=== PATIENT | male | born 1955 | race Caucasian/White ===

== ENCOUNTER 2022-07-16 08:54 | Inpatient (IN) | payer MEDICARE, OTHER, SELFPAY ==
[2022-07-16] VITALS (12 sets, daily range): BP systolic 99–145; BP diastolic 59–80; PULSE 77–109; RESP 16–28; TEMP 36.9–37.3; O2SAT 91–98; BMI 20.2
--- NOTE | 2022-07-16 09:05 | DI.RAD.S_ITS ---
PROCEDURE: XR CHEST 1V INDICATIONS: Short of breath TECHNIQUE: One view of the chest was acquired. COMPARISON: [facility], CT, CT ANGIO CHEST PE PROTOCOL, 07/16/2022, 9:36. [facility], CR, CHEST 2 VIEW, 09/20/2008, 12:08. FINDINGS: Surgical changes and devices: Epigastric clips are seen. Lungs and pleura: Poorly defined infiltrate can be seen involving the right lower lung. Underlying emphysematous changes are seen, with baseline parenchymal coarsening. There is mild blunting of the right costophrenic angle. No pneumothorax is seen. Mediastinum: The cardiac contours are within normal limits. The aorta demonstrates calcification and tortuosity. Bones and chest wall: No suspicious bony lesions. Age-appropriate bony degenerative changes are seen. Overlying soft tissues appear unremarkable. IMPRESSION: Right-sided pleural effusion and infiltrate. Postoperative and degenerative changes are seen. Dictated by: Alberto River M.D. on 07/16/2022 at 9:02 Approved by: Alberto River M.D. on 07/16/2022 at 9:03
--- NOTE | 2022-07-16 09:06 | DI.CT.S_ITS ---
PROCEDURE: CT ANGIO CHEST PE PROTOCOL INDICATIONS: hypoxia TECHNIQUE: After the administration of intravenous contrast, 2 mm thick sections acquired from the pulmonary apices to the posterior costophrenic angles. 3-dimensional maximum intensity projection (MIP) coronal and sagittal reformats were then acquired through the thorax. For radiation dose reduction, the following was used: automated exposure control, adjustment of mA and/or kV according to patient size. COMPARISON: None. FINDINGS: Image quality: Excellent. Pulmonary arteries: Pulmonary arteries are normal in size, and demonstrate no intraluminal filling defects to suggest central pulmonary embolism. Lungs and pleura: Calcified pleural plaques are noted in posterior medial right lung field suggestive of prior asbestos exposure. Moderate to severe centrilobular emphysema is seen. Ill-defined airspace opacities are noted in posterior and medial aspect of right lower lobe with associated bronchiectasis. Masslike consolidation in posterior lateral left lung base measures 1.2 x 1.3 cm in size is seen series 5, image 294. Calcified granuloma is also noted at left lung base measures 4 mm in size series 5, image 300. Small infiltrate/atelectasis in anterolateral aspect of right middle lobe is seen. Central and peripheral airway is patent. No pleural effusion or pneumothorax. Mediastinum: Heart size is normal, without pericardial effusion. Borderline enlarged mediastinal and hilar lymph nodes are seen measures up to 1 cm in size in right hilar region and precarinal space. Thoracic aorta is normal in caliber and enhancement. Surgical clips are noted in distal esophagus and gastroesophageal junction suggest clinical correlation. Esophagus is normal in caliber, without hiatal hernia. Bones and chest wall: No suspicious bony lesions. No acute vertebral body compression fracture. Postfusion changes are noted in lower cervical spine.. Thyroid gland is within normal limits. No axillary or supraclavicular adenopathy. Abdomen: Visualized upper abdominal solid organs appear normal in the early arterial phase of enhancement. IMPRESSION: 1. No evidence of pulmonary emboli. No thoracic aortic aneurysm or gross dissection. 2. Advanced centrilobular emphysema. Calcified pleural plaques along posterior and medial aspect of right lung field suggestive of prior asbestos exposure. 3. Moderate size airspace opacity involving right lower lobe with associated bronchiectasis suggestive of right lower lobe infiltrate. 4. Spiculated 1.2 x 1.3 cm masslike consolidation in left lung base which may represent focal nodular infiltrate/atelectasis. Malignant mass cannot be excluded. Follow-up CT study in 3 months is recommended for further evaluation. 5. Suggestion of mild reactive lymph nodes in mediastinum and bilateral hilar region. Dictated by: David Pearce M.D. on 07/16/2022 at 9:56 Approved by: David Pearce M.D. on 07/16/2022 at 10:06
[2022-07-16] MEDS: ALBUTEROL/IPRATROPIUM 3 ML AMPUL INH (09:13)
[2022-07-16 09:20] LABS: Add Manual Diff / Slide Review NO; Basophils Absolute Auto 100 /uL (0-100); Basophils Percent Auto 0.4 % (0-2); Eosinophils Absolute Auto 0 /uL (0-450); Eosinophils Percent Auto 0.1 % (2-4); Hematocrit 44.8 % (41-53); Lymphocytes Absolute Auto 1200 /uL (1100-4500); Lymphocytes Percent Auto 5.5 % (25-40); Mean Corpuscular HGB Conc 33.5 % (30-36); Mean Corpuscular Hemoglobin 29.7 PG (26-34); Mean Corpuscular Volume 88.7 fL (80-100); Monocytes Absolute Auto 1300 /uL (0-900); Neutrophils Absolute Auto 19300 /uL (1500-7000); Platelet Count 182 X10^3/uL (150-400); Red Blood Cell Count 5.05 X10^6/uL (4.5-5.9)
--- NOTE | 2022-07-16 09:27 | ED_ITS ---
HPI - SOB/Dyspnea General Chief Complaint: Shortness of Breath/Dyspnea Stated Complaint: sent by [facility] Time Seen by Provider: 07/16/22 09:05 Source: patient Mode of arrival: Ambulatory Limitations: no limitations History of Present Illness HPI Narrative: Patient is a 67-year-old male history of COPD not on home oxygen presenting today with fever last night and increasing shortness of breath. He states that his granddaughter she is had RSV and influenza about a week ago he also just flew in from [place]. Last evening he reports that he is very chilled and could not get warm. He is had more productive cough. He reports not getting as much relief from his inhalers as he used to. He denies any chest pain or p alpitations. He denies any orthopnea. He feels short of breath rest. Denies any abdominal pain nausea vomiting. He is noted to be hypoxic on room air at 86%. Patient previously saw Dr. Mike but now lives in [place] and has a different PCP Related Data Home Medications Medication Instructions Recorded Confirmed albuterol sulfate 90 mcg/actuation 1 inh inhalation BID PRN Shortness 07/16/22 07/16/22 aerosol inhaler Of Breath budesonide-formoterol HFA 160 1 inh inhalation BID 07/16/22 07/16/22 mcg-4.5 mcg/actuation aerosol inhaler (Symbicort) tiotropium bromide 18 mcg capsule 18 mcg inhalation DAILY 07/16/22 07/16/22 with inhalation device (Spiriva with HandiHaler) Allergies Allergy/AdvReac Type Severity Reaction Status Date / Time Penicillins Allergy Verified 07/16/22 09:09 Review of Systems Review of Systems ROS Unobtainable: All systems reviewed & are unremarkable except as noted in HPI and below Patient History Social History household members: spouse Smoking Status: Current some day smoker alcohol intake: current Smoking Status: Current some day smoker tobacco type: cigarettes alcohol intake frequency: holidays/special occasions only Substance Use Type: does not use Exam Initial Vital Signs Initial Vital Signs: Vital Signs Temperature 98.7 F 07/16/22 09:09 Pulse Rate 109 H 07/16/22 09:09 Respiratory Rate 28 H 07/16/22 09:09 Blood Pressure 136/66 07/16/22 09:09 Pulse Oximetry 98 07/16/22 09:09 Oxygen Delivery Method 07/16/22 09:09 GENERAL: Alert 67-year-old male and in no acute distress. HEENT: Head atraumatic,EOMI, pupils reactive, face symmetric, moist mucous membranes CARDIOVASCULAR: Regular rate and rhythm without murmurs, rubs or gallops. RESPIRATORY: Slightly decreased breath sounds coarse at bases no significant tachypnea speaks in full sentences without difficulty ABDOMEN: Soft, nontender. Normoactive bowel sounds all 4 quadrants. No guarding or rebound. EXTREMITIES: Normal range of motion, no clubbing or edema. Neurovascularly intact NEUROLOGICAL: Alert and oriented x4.Normal gait and speech. SKIN: Warm, dry, no laceration, no petechiae, no rashes or lesions. Course Orders Ordered: ED Orders 07/16/22 11:15 Urinalysis and Microscopic Stat Albuterol (Albuterol Hfa Mdi 60 Puff/8 Gm Inhaler) 2 puff INH RTQ4HR PRN PRN Reason: Shortness Of Breath Ceftriaxone Sodium 1,000 mg/ (Sodium Chloride) 100 mls @ 200 mls/hr IV Q24H KERRY Stop: 07/21/22 08:59 Azithromycin 500 mg/ Dextrose 250 mls @ 250 mls/hr IV Q24H KERRY Stop: 07/19/22 08:59 Prednisone (Prednisone 20 Mg Tablet) 40 mg PO DAILY KERRY Stop: 07/21/22 08:59 Sennosides (Sennosides 8.6 Mg Tablet) 17.2 mg PO DAILY KERRY Discontinued Medications Albuterol/Ipratropium (Albuterol/Ipratropium 3 Ml Ampul) 3 ml INH NOW ONE Stop: 07/16/22 09:07 Last Admin: 07/16/22 09:13 Dose: 3 ml Documented By: KARUNA Aspirin (Aspirin 81 Mg Chew Tab) 324 mg PO NOW ONE Stop: 07/16/22 11:18 Last Admin: 07/16/22 11:43 Dose: 324 mg Documented By: OLIMPIA Azithromycin (Azithromycin 250 Mg Tablet) 1,000 mg PO NOW ONE Stop: 07/16/22 09:26 Last Admin: 07/16/22 10:39 Dose: 1,000 mg Documented By: OLIMPIA Ceftriaxone Sodium 1,000 mg/ (Sodium Chloride) 100 mls @ 200 mls/hr IV NOW ONE Stop: 07/16/22 09:26 Last Infusion: 07/16/22 11:17 Dose: 0 mls/hr Documented By: Admin: 07/16/22 10:39 Dose: 200 mls/hr Documented By: OLIMPIA Methylprednisolone (Methylprednisolone 125 Mg/2 Ml Vial) 125 mg IV NOW ONE Stop: 07/16/22 10:20 Last Admin: 07/16/22 10:39 Dose: 125 mg Documented By: OLIMPIA Vital Signs Vital signs: Vital Signs - 8 hr 07/16/22 09:09 07/16/22 09:13 07/16/22 09:56 Temperature 98.7 F Pulse Rate 109 H 95 H 105 H Respiratory Rate 28 H 18 Blood Pressure 136/66 Pulse Oximetry 98 93 91 Oxygen Delivery Method Room Air Nasal Cannula Oxygen Flow Rate 1 1 Fraction of Inspired Oxygen 24 07/16/22 09:57 07/16/22 09:57 07/16/22 10:00 Temperature Pulse Rate 100 H Respiratory Rate Blood Pressure 143/78 H 133/79 Pulse Oximetry 94 Oxygen Delivery Method Oxygen Flow Rate Fraction of Inspired Oxygen 07/16/22 10:00 07/16/22 10:30 07/16/22 10:30 Temperature Pulse Rate 95 H 100 H Respiratory Rate Blood Pressure 126/75 Pulse Oximetry 96 93 Oxygen Delivery Method Nasal Cannula Room Air Oxygen Flow Rate 1 Fraction of Inspired Oxygen MDM - SOB/Dyspnea Lab Data Result diagrams: 07/16/22 09:00 07/16/22 09:00 Labs: Lab Results 07/16/22 07/16/22 07/16/22 Range/Units 09:00 09:00 09:00 WBC 22.0 H (4.5-11.0) X10^3/uL RBC 5.05 (4.5-5.9) X10^6/uL Hgb 15.0 (13.5-17.5) g/dL Hct 44.8 (41-53) % MCV 88.7 (80-100) fL MCH 29.7 (26-34) PG MCHC 33.5 (30-36) % RDW 13.0 (11.6-14.8) % Plt Count 182 (150-400) X10^3/uL Neut % (Auto) 88.0 H (50-75) % Lymph % (Auto) 5.5 L (25-40) % [place] % (Auto) 6.0 (3-14) % Eos % (Auto) 0.1 L (2-4) % Baso % (Auto) 0.4 (0-2) % Neut # (Auto) 25341 H (7789-1430) /uL Lymph # (Auto) 1200 (8122-7015) /uL [place] # (Auto) 1300 H (0-900) /uL Eos # (Auto) 0 (0-450) /uL Baso # (Auto) 100 (0-100) /uL Sodium 137 (137-145) mmol/L Potassium 3.8 (3.4-5.1) mmol/L Chloride 101 (98-107) mmol/L Carbon Dioxide 25 (22-32) mmol/L BUN 21 H (9-20) mg/dL Creatinine 0.80 (0.66-1.25) mg/dL Estimated GFR > 60 (>60) mL/min BUN/Creatinine Ratio 26.3 H (6-22) Glucose 109 (80-110) mg/dL Lactate (0.7-2.1) mmol/L Calcium 9.7 (8.4-10.2) mg/dL Total Bilirubin 1.1 (0.2-1.3) mg/dL AST 24 (17-59) IU/L ALT 19 (<50) IU/L Alkaline Phosphatase 88 (38-126) U/L Total Creatine Kinase 117 (55-170) U/L CK-MB (CK-2) 0.61 (<2.37) ng/mL CK-MB (CK-2) Rel Index 0.5 L (1.5-5.0) % Troponin I < 0.012 (0.01-0.034) ng/mL NT-Pro-B Natriuret Pep 261 H (<125) pg/mL Total Protein 8.1 (6.3-8.2) g/dL Albumin 4.4 (3.5-5.0) g/dL Globulin 3.7 (1.7-4.1) g/dL Albumin/Globulin Ratio 1.2 (1.0-2.8) Procalcitonin 0.97 H (<0.5) ng/mL SARS-CoV-2 (PCR) (Negative) Influenza A (RT-PCR) (NEGATIVE) Influenza B (RT-PCR) (NEGATIVE) RSV (PCR) (Negative) 07/16/22 07/16/22 Range/Units 09:00 09:00 WBC (4.5-11.0) X10^3/uL RBC (4.5-5.9) X10^6/uL Hgb (13.5-17.5) g/dL Hct (41-53) % MCV (80-100) fL MCH (26-34) PG MCHC (30-36) % RDW (11.6-14.8) % Plt Count (150-400) X10^3/uL Neut % (Auto) (50-75) % Lymph % (Auto) (25-40) % [place] % (Auto) (3-14) % Eos % (Auto) (2-4) % Baso % (Auto) (0-2) % Neut # (Auto) (4666-9836) /uL Lymph # (Auto) (7325-0175) /uL [place] # (Auto) (0-900) /uL Eos # (Auto) (0-450) /uL Baso # (Auto) (0-100) /uL Sodium (137-145) mmol/L Potassium (3.4-5.1) mmol/L Chloride (98-107) mmol/L Carbon Dioxide (22-32) mmol/L BUN (9-20) mg/dL Creatinine (0.66-1.25) mg/dL Estimated GFR (>60) mL/min BUN/Creatinine Ratio (6-22) Glucose (80-110) mg/dL Lactate 1.5 (0.7-2.1) mmol/L Calcium (8.4-10.2) mg/dL Total Bilirubin (0.2-1.3) mg/dL AST (17-59) IU/L ALT (<50) IU/L Alkaline Phosphatase (38-126) U/L Total Creatine Kinase (55-170) U/L CK-MB (CK-2) (<2.37) ng/mL CK-MB (CK-2) Rel Index (1.5-5.0) % Troponin I (0.01-0.034) ng/mL NT-Pro-B Natriuret Pep (<125) pg/mL Total Protein (6.3-8.2) g/dL Albumin (3.5-5.0) g/dL Globulin (1.7-4.1) g/dL Albumin/Globulin Ratio (1.0-2.8) Procalcitonin (<0.5) ng/mL SARS-CoV-2 (PCR) Negative (Negative) Influenza A (RT-PCR) Flu a negative (NEGATIVE) Influenza B (RT-PCR) Flu b negative (NEGATIVE) RSV (PCR) Negative (Negative) Imaging Data Chest x-ray: Radiologist's Impression: [address] [place] [id number] XRay Report Signed Patient: Ruben Mtz MR#: [id number] : 1955 Acct:[id number] Age/Sex: 67 / M Date of Service: 07/16/22 Loc: ED Accession Number: [id number] ?? Procedure: XR chest 1V Ordering Provider: Maricruz Syed D.O. PROCEDURE:? XR CHEST 1V ? INDICATIONS:? Short of breath ? TECHNIQUE:? One view of the chest was acquired.? ? COMPARISON:? [facility], CT, CT ANGIO CHEST PE PROTOCOL, 07/16/2022, 9:36.? [facility], CR, CHEST 2 VIEW, 09/20/2008, 12:08. ? FINDINGS:? ? Surgical changes and devices:? Epigastric clips are seen. ? Lungs and pleura:? Poorly defined infiltrate can be seen involving the right lower lung.? Underlying emphysematous changes are seen, with baseline parenchymal coarsening.? There is mild blunting of the right costophrenic angle.? No pneumothorax is seen. ? Mediastinum:? The cardiac contours are within normal limits. The aorta demo nstrates calcification and tortuosity. ? Bones and chest wall:? No suspicious bony lesions.? Age-appropriate bony degenerative changes are seen. ? Overlying soft tissues appear unremarkable.? IMPRESSION:? Right-sided pleural effusion and infiltrate. ? Postoperative and degenerative changes are seen.? ? ? Dictated by: Alberto River M.D. on 07/16/2022 at 9:02? CT scan - chest: Radiologist's Impression: CT Scan Report Signed Patient: Ruben Mtz MR#: [id number] : 1955 Acct:[id number] Age/Sex: 67 / M Date of Service: 07/16/22 Loc: ED Accession Number: [id number] ?? Procedure: CT angio chest PE protocol Ordering Provider: Maricruz Syed D.O. PROCEDURE:? CT ANGIO CHEST PE PROTOCOL ? INDICATIONS:? hypoxia ? TECHNIQUE:? After the administration of intravenous contrast, 2 mm thick sections acquired from the pulmonary apices to the posterior costophrenic angles.? 3-dimensional maximum intensity projection (MIP) coronal and sagittal reformats were then acquired through the thorax.? For radiation dose reduction, the following was used:? automated exposure control, adjustment of mA and/or kV according to patient size.? ? COMPARISON:? None. ? FINDINGS:? Image quality:? Excellent.? ? Pulmonary arteries:? Pulmonary arteries are normal in size, and demonstrate no intraluminal filling defects to suggest central pulmonary embolism.? ? Lungs and pleura:? Calcified pleural plaques are noted in posterior medial right lung field suggestive of prior asbestos exposure.? Moderate to severe centrilobular emphysema is seen.? Ill-defined airspace opacities are noted in posterior and medial aspect of right lower lobe with associated bronchiectasis.? Masslike consolidation in posterior lateral left lung base measures 1.2 x 1.3 cm in size is seen series 5, image 294. Calcified granuloma is also noted at left lung base measures 4 mm in size series 5, image 300. Small infiltrate/atelectasis in anterolateral aspect of right middle lobe i s seen.? Central and peripheral airway is patent.? No pleural effusion or pneumothorax.? ? Mediastinum:? Heart size is normal, without pericardial effusion.? Borderline enlarged mediastinal and hilar lymph nodes are seen measures up to 1 cm in size in right hilar region and precarinal space.? Thoracic aorta is normal in caliber and enhancement.? Surgical clips are noted in distal esophagus and gastroesophageal junction suggest clinical correlation.? Esophagus is normal in caliber, without hiatal hernia.? ? Bones and chest wall:? No suspicious bony lesions.? No acute vertebral body compression fracture.? Postfusion changes are noted in lower cervical spine..? Thyroid gland is within normal limits.? No axillary or supraclavicular adenopathy.? ? Abdomen:? Visualized upper abdominal solid organs appear normal in the early arterial phase of enhancement.? ? IMPRESSION:? 1. No evidence of pulmonary emboli.? No thoracic aortic aneurysm or gross dissection. ? 2. Advanced centrilobular emphysema.? Calcified pleural plaques along posterior and medial aspect of right lung field suggestive of prior asbestos exposure. ? 3. Moderate size airspace opacity involving right lower lobe with associated bronchiectasis suggestive of right lower lobe infiltrate. ? 4. Spiculated 1.2 x 1.3 cm masslike consolidation in left lung base which may represent focal nodular infiltrate/atelectasis.? Malignant mass cannot be excluded.? Follow-up CT study in 3 months is recommended for further evaluation. ? 5. Suggestion of mild reactive lymph nodes in mediastinum and bilateral hilar region.? ? Dictated by: David Pearce M.D. on 07/16/2022 at 9:56 ? ? ECG Data Interpretation: Normal sinus rhythm rate 101 WV interval 142 QRS [address] changes mild wandering baseline MDM Narrative Medical decision making narrative: Patient is 67-year-old male history of COPD presenting with hypoxia and increased shortness of breath. He has reported rigors last night but is currently afebrile. He has some coarse rales at the bases but no significant wheezing. He is given a DuoNeb which helps a little bit. Concerns certainly for infection with recent exposure to influenza and RSV along with reported fever last night. He is found to have leukocytosis 22 with a left shift, lactate 1.5, procalcitonin 0.97. X-ray shows right-sided pleural effusion and infiltrate with postoperative changes. There is certainly concern for pneumonia so he is given Rocephin and azithromycin for community-acquired. He is no risk factors for hospital-acquired pneumonia. CT angio was done to rule out pulmonary embolism with recent travel. No pulmonary embolism was found. It did find airspace opacity in right lower lobe associated with bronchiectasis and right lower lobe infiltrate. It also reveals a spiculated mass in the left lower quadrant concerning for malignancy. I have discussed all findings with patient and [id number] at bedside. Along with concern for malignancy in the left lower low. He is given copies of CT. He will need close follow-up in [place]. Patient is anxious to return to [place]. He is still requiring 1-2 L of oxygen. Therefore he will need admission for COPD exacerbation hypoxic respiratory failure and pneumonia.. He is not given sepsis fluids because he does not meet severe sepsis criteria he is never tachycardic or hypotensive. Dr. Lama updated on patient's symptoms and test results and kindly admit Discharge Plan Departure Patient Disposition: Admitted As Inpatient Clinical Impression: Pneumonia, Lung mass, COPD exacerbation, Hypoxia Admit Date/Time: 07/16/22 10:45 Admit Provider: Christiana Castillo
[2022-07-16 09:30] LABS: Lactate (Lactic Acid) 1.5 mmol/L (0.7-2.1)
[2022-07-16 09:31] LABS: Alanine Aminotransferase 19 IU/L (<50); Albumin 4.4 g/dL (3.5-5.0); Albumin Globulin Ratio 1.2 (1.0-2.8); Alkaline Phosphatase 88 U/L (38-126); Aspartate Aminotransferase 24 IU/L (17-59); BUN Creatinine Ratio 26.3 (6-22); Bilirubin Total 1.1 mg/dL (0.2-1.3); Blood Urea Nitrogen 21 mg/dL (9-20); Calcium 9.7 mg/dL (8.4-10.2); Carbon Dioxide 25 mmol/L (22-32); Chloride 101 mmol/L (98-107); Creatine Kinase 117 U/L (55-170); Estimated Glomerular Filt Rate > 60 mL/min (>60); Globulin 3.7 g/dL (1.7-4.1); Glucose 109 mg/dL (80-110); HEMOLYSIS < 15 (0-50); Potassium 3.8 mmol/L (3.4-5.1); Sodium 137 mmol/L (137-145); Total Protein 8.1 g/dL (6.3-8.2)
[2022-07-16 09:40] LABS: NT-proBNP (BNP-Adult 18+) 261 pg/mL (<125)
[2022-07-16 09:43] LABS: Troponin I < 0.012 ng/mL (0.01-0.034)
[2022-07-16 09:46] LABS: CKMB % Relative Index 0.5 % (1.5-5.0); Creatine Kinase MB 0.61 ng/mL (<2.37)
[2022-07-16 09:48] LABS: Procalcitonin 0.97 ng/mL (<0.5)
[2022-07-16 09:59] LABS: Influenza A - CEPHEID Flu A NEGATIVE (NEGATIVE); Influenza B - CEPHEID Flu B NEGATIVE (NEGATIVE); Respiratory Syncytial Virus Negative (Negative)
[2022-07-16 10:00] LABS: COVID-19 CEPHEID 4-PLEX PCR Negative (Negative)
[2022-07-16] MEDS: cefTRIAXone 1,000 MG in SODIUM CHLORIDE 0.9% 100 ML 200 MG IV (10:39)
[2022-07-16] MEDS: AZITHROMYCIN 250 MG TABLET 1000 MG PO (10:39)
[2022-07-16] MEDS: methylPREDNISolone 125 MG/2 ML VIAL IV (10:39)
[2022-07-16] MEDS: ASPIRIN 81 MG CHEW TAB 324 MG PO (11:43)
[2022-07-16 12:02] LABS: Appearance Urine UA CLEAR; Bilirubin Urine UA NEGATIVE (NEGATIVE); Color Urine UA YELLOW; Glucose Urine UA NEGATIVE (Negative); Ketones Urine UA 1+ (NEGATIVE); Leukocyte Esterase Urine UA NEGATIVE (NEGATIVE); Nitrite Urine UA NEGATIVE (Negative); Occult Blood Urine UA 3+ (Negative); Protein Urine UA TRACE (Negative); Urobilinogen Urine UA 0.2 E.U./dL (0.2)
[2022-07-16 12:05] LABS: Bacteria Urine None Seen; Culture Indicated Urine Cult Not Indicated; RBC Urine 5-10/HPF (0-5/HPF); WBC Urine None Seen (0-5/HPF)
--- NOTE | 2022-07-16 16:54 | PM.HP.1 ---
History of Present Illness History of Present Illness Date Patient Seen: 07/16/22 Chief complaint: sent by [facility] Narrative: Ruben Mtz is a 67-year-old male history of COPD not on home oxygen presenting today with fever last night and increasing shortness of breath.? He states that his granddaughter she is had RSV and influenza about a week ago he also just flew in from [place].? Last evening he reports that he is very chilled and could not get warm.? He is had more productive cough.? He reports not getting as much relief from his inhalers as he used to.? He denies any chest pain or palpitations.? He denies any orthopnea.? He feels short of breath rest.? Denies any abdominal pain nausea vomiting.? He is noted to be hypoxic on room air at 86%. In the ER, COVID/influenza and RSV tests were all negative. X-ray was concerning for right-sided pneumonia and right-sided pleural effusion. CTA of chest confirmed no pulmonary embolism however there was nodular infiltrate and atelectasis or possible malignant mass left lower lung as well as right lower findings consistent with pneumonia and bronchiectasis. There is a recommendation for follow-up CT at 3 months. Not complaining of any nausea vomiting diaphoresis or abdominal pain. No dysuria or hematuria. Able to move all extremities volitionally. Neurological symptoms in any extremity. Patient History Family & Social History Social History: household members spouse Prior Living Arrangements House Safety & Behavioral: Feels Safe in Current Yes Environment Been Physically Hurt or No Threatened By a Person Tobacco & Substance use: Smoking Status Current some day smoker alcohol intake current alcohol intake frequency holiday/special occasion Substance Use Type does not use Meds Home Medications and Allergies Home Medications Medication Instructions Recorded Confirmed Type albuterol sulfate 90 mcg/actuation 1 inh inhalation BID PRN Shortness 07/16/22 07/16/22 History aerosol inhaler Of Breath budesonide-formoterol HFA 160 1 inh inhalation BID 07/16/22 07/16/22 History mcg-4.5 mcg/actuation aerosol inhaler (Symbicort) tiotropium bromide 18 mcg capsule 18 mcg inhalation DAILY 07/16/22 07/16/22 History with inhalation device (Spiriva with HandiHaler) Allergies Allergy/AdvReac Type Severity Reaction Status Date / Time Penicillins Allergy Verified 07/16/22 09:09 Review of Systems Review of Systems Narrative: Fourteen system was reviewed and pertinent findings in the history of chief complaint. Exam Vital Signs (past 8 hours): - 07/16/22 09:09 07/16/22 09:13 07/16/22 09:56 Temperature 98.7 F Pulse Rate 109 H 95 H 105 H Respiratory Rate 28 H 18 Blood Pressure 136/66 Pulse Oximetry 98 93 91 Oxygen Delivery Method Room Air Nasal Cannula Oxygen Flow Rate 1 1 Fraction of Inspired Oxygen 24 07/16/22 09:57 07/16/22 09:57 07/16/22 10:00 Temperature Pulse Rate 100 H Respiratory Rate Blood Pressure 143/78 H 133/79 Pulse Oximetry 94 Oxygen Delivery Method Oxygen Flow Rate Fraction of Inspired Oxygen 07/16/22 10:00 07/16/22 10:30 07/16/22 10:30 Temperature Pulse Rate 95 H 100 H Respiratory Rate Blood Pressure 126/75 Pulse Oximetry 96 93 Oxygen Delivery Method Nasal Cannula Room Air Oxygen Flow Rate 1 Fraction of Inspired Oxygen 07/16/22 11:00 07/16/22 11:00 07/16/22 11:30 Temperature Pulse Rate 96 H Respiratory Rate Blood Pressure 145/76 H 132/76 Pulse Oximetry 92 Oxygen Delivery Method Oxygen Flow Rate Fraction of Inspired Oxygen 07/16/22 11:30 07/16/22 11:13 07/16/22 13:03 Temperature 99.2 F Pulse Rate 88 82 Respiratory Rate 18 Blood Pressure 128/59 L Pulse Oximetry 92 94 Oxygen Delivery Method Room Air Oxygen Flow Rate 0 Fraction of Inspired Oxygen Fraction of Inspired Oxygen 24 SaO2/FiO2 Ratio 387 Oxygen Delivery Method Room Air Oxygen Flow Rate 0 Narrative Exam Narrative: GENERAL:? Alert and oriented and in no acute distress. HEENT: Head atraumatic,EOMI, pupils reactive, face symmetric, moist mucous membranes. Extraocular movements normal. CARDIOVASCULAR: Regular rate and rhythm without murmurs, rubs or gallops. Heart sounds S1 and S2 RESPIRATORY:? Slightly decreased breath sounds coarse at bases. No wheezes or crackles. ABDOMEN: Soft, nontender.? Normoactive bowel sounds all 4 quadrants.? No guarding or rebound. EXTREMITIES: Normal range of motion, no clubbing or edema.? Neurovascularly intact. Appears to have normal strength in all extremities. NEUROLOGICAL: Alert and oriented x4.Normal gait and speech. SKIN: Warm, dry, no laceration, no petechiae, no rashes or lesions. Objective Labs Result Diagrams: 07/16/22 09:00 07/16/22 09:00 Labs: Laboratory Results - last 24 hr 07/16/22 07/16/22 07/16/22 09:00 09:00 09:00 WBC 22.0 H RBC 5.05 Hgb 15.0 Hct 44.8 MCV 88.7 MCH 29.7 MCHC 33.5 RDW 13.0 Plt Count 182 Neut % (Auto) 88.0 H Lymph % (Auto) 5.5 L [place] % (Auto) 6.0 Eos % (Auto) 0.1 L Baso % (Auto) 0.4 Neut # (Auto) 04768 H Lymph # (Auto) 1200 [place] # (Auto) 1300 H Eos # (Auto) 0 Baso # (Auto) 100 Sodium 137 Potassium 3.8 Chloride 101 Carbon Dioxide 25 BUN 21 H Creatinine 0.80 Estimated GFR > 60 BUN/Creatinine Ratio 26.3 H Glucose 109 Lactate Calcium 9.7 Total Bilirubin 1.1 AST 24 ALT 19 Alkaline Phosphatase 88 Total Creatine Kinase 117 CK-MB (CK-2) 0.61 CK-MB (CK-2) Rel Index 0.5 L Troponin I < 0.012 NT-Pro-B Natriuret Pep 261 H Total Protein 8.1 Albumin 4.4 Globulin 3.7 Albumin/Globulin Ratio 1.2 Procalcitonin 0.97 H Urine Color Urine Appearance Urine pH Ur Specific [place] Urine Protein Urine Glucose (UA) Urine Ketones Urine Occult Blood Urine Nitrate Urine Bilirubin Urine Urobilinogen Ur Leukocyte Esterase Urine RBC Urine WBC Urine Bacteria Ur Culture Indicated? SARS-CoV-2 (PCR) Influenza A (RT-PCR) Influenza B (RT-PCR) RSV (PCR) 07/16/22 07/16/22 07/16/22 09:00 09:00 11:15 WBC RBC Hgb Hct MCV MCH MCHC RDW Plt Count Neut % (Auto) Lymph % (Auto) [place] % (Auto) Eos % (Auto) Baso % (Auto) Neut # (Auto) Lymph # (Auto) [place] # (Auto) Eos # (Auto) Baso # (Auto) Sodium Potassium Chloride Carbon Dioxide BUN Creatinine Estimated GFR BUN/Creatinine Ratio Glucose Lactate 1.5 Calcium Total Bilirubin AST ALT Alkaline Phosphatase Total Creatine Kinase CK-MB (CK-2) CK-MB (CK-2) Rel Index Troponin I NT-Pro-B Natriuret Pep Total Protein Albumin Globulin Albumin/Globulin Ratio Procalcitonin Urine Color Yellow Urine Appearance Clear Urine pH 5.0 Ur Specific [place] 1.020 Urine Protein Trace H Urine Glucose (UA) Negative Urine Ketones 1+ H Urine Occult Blood 3+ H Urine Nitrate Negative Urine Bilirubin Negative Urine Urobilinogen 0.2 Ur Leukocyte Esterase Negative Urine RBC 5-10/hpf H Urine WBC None seen Urine Bacteria None seen Ur Culture Indicated? Cult not indicated SARS-CoV-2 (PCR) Negative Influenza A (RT-PCR) Flu a negative Influenza B (RT-PCR) Flu b negative RSV (PCR) Negative Assessment & Plan Assessment & Plan narrative: 1. Right lower lung bronchiectasis and pneumonia. Continue ceftriaxone and azithromycin that was initiated in the ER. Follow clinically and follow labs. 2. Underlying COPD. Likely with exacerbation. Continue patient's regular inhalers and also provide prednisone. 3. History of smoking. Currently only smokes 1 cigarette per month. Smoking cessation discussion with the patient. 4. Concern for sepsis. Blood cultures pending 5. Presentation with respiratory failure with hypoxia and an O2 saturation measured at 86% on room air secondary to the COPD/pneumonia. Provide O2 supplementation as needed and continue to treat COPD exacerbation/pneumonia. 6. CTA demonstrating spiculated 1.2 x 1.3 cm masslike consolidation in left lung base which may represent focal nodular infiltrate/atelectasis.? Malignant mass cannot be excluded.? Follow-up CT study in 3 months is recommended for further evaluation. 7. Emphysema noted and changes consistent with asbestos exposure rated on CTA of the chest. 8. Elevated BUN to 21. Consistent with mild dehydration. Encourage fluid intake. 9. Elevated BNP to 261. No specific treatment needed at this time. Likely secondary to pneumonia causing some congestion. 10. Elevated procalcitonin. Follow. 11. Microscopic hematuria. Follow. 12. Concern for lung mass. Follow-up CT in 3 months. Discussion of patient with ER physician at the time of transition from ER to [facility]. DVT prophylaxis: Enoxaparin subcu every day 40 mg Code status: Full code Substitute decision maker: Patient's and Liveda Loose Time Spent With Patient Critical Care time: I spent a total of [] minutes of critical care time on this patient's care today; this time is exclusive of procedural time. Quality VTE Deep Vein Thrombosis/Pulmonary Embolism Present on Admission: No
[2022-07-17] MEDS: ACETAMINOPHEN 325 MG TABLET 650 MG PO (01:21)
[2022-07-17 03:00] VITALS: BP 132/73; PULSE 87; RESP 18; TEMP 36.8; O2SAT 93
[2022-07-17 07:26] LABS: Add Manual Diff / Slide Review NO; Basophils Absolute Auto 0 /uL (0-100); Basophils Percent Auto 0.1 % (0-2); Eosinophils Absolute Auto 0 /uL (0-450); Eosinophils Percent Auto 0.1 % (2-4); Hematocrit 38.8 % (41-53); Hemoglobin 12.8 g/dL (13.5-17.5); Lymphocytes Absolute Auto 1200 /uL (1100-4500); Mean Corpuscular Hemoglobin 29.4 PG (26-34); Mean Corpuscular Volume 89.2 fL (80-100); Monocytes Absolute Auto 1500 /uL (0-900); Monocytes Percent Auto 7.3 % (3-14); Neutrophils Absolute Auto 18000 /uL (1500-7000); Neutrophils Percent Auto 86.5 % (50-75); Platelet Count 192 X10^3/uL (150-400); Red Blood Cell Count 4.35 X10^6/uL (4.5-5.9); White Blood Cell Count 20.8 X10^3/uL (4.5-11.0)
[2022-07-17 07:49] LABS: Alanine Aminotransferase 15 IU/L (<50); Albumin 3.6 g/dL (3.5-5.0); Alkaline Phosphatase 71 U/L (38-126); Aspartate Aminotransferase 18 IU/L (17-59); Bilirubin Total 0.4 mg/dL (0.2-1.3); Blood Urea Nitrogen 21 mg/dL (9-20); Calcium 8.8 mg/dL (8.4-10.2); Carbon Dioxide 23 mmol/L (22-32); Chloride 102 mmol/L (98-107); Estimated Glomerular Filt Rate > 60 mL/min (>60); Globulin 3.5 g/dL (1.7-4.1); Glucose 145 mg/dL (80-110); HEMOLYSIS < 15 (0-50); Potassium 3.8 mmol/L (3.4-5.1); Sodium 137 mmol/L (137-145); Total Protein 7.1 g/dL (6.3-8.2)
[2022-07-17 08:00] VITALS: BP 110/66; PULSE 69; RESP 18; TEMP 36.8; O2SAT 94
[2022-07-17 08:03] LABS: Procalcitonin 0.86 ng/mL (<0.5)
--- NOTE | 2022-07-17 08:07 | PM.PN.1 ---
Subjective Subjective Date Patient Seen: 07/17/22 Interval history: Upon entering room patient just finished a shower and off O2. He says he is still coughing quite a bit with increased sputum. Exam Vital Signs (past 8 hours): - 07/17/22 03:00 07/17/22 08:00 Temperature 98.3 F 98.2 F Pulse Rate 87 69 Respiratory Rate 18 18 Blood Pressure 132/73 110/66 Pulse Oximetry 93 94 Oxygen Flow Rate 3 0 Fraction of Inspired Oxygen 24 SaO2/FiO2 Ratio 387 Oxygen Delivery Method Nasal Cannula Oxygen Flow Rate 0 Narrative Exam Narrative: GENERAL:? Alert and oriented and in no acute distress. HEENT: Head atraumatic,EOMI, pupils reactive, face symmetric, moist mucous membranes. Extraocular movements normal. CARDIOVASCULAR: Regular rate and rhythm without murmurs, rubs or gallops. Heart sounds S1 and S2 RESPIRATORY:? Slightly decreased breath sounds throughout but coarse at bases. No wheezes or crackles. ABDOMEN: Soft, nontender.? Normoactive bowel sounds all 4 quadrants.? No guarding or rebound. EXTREMITIES: Normal range of motion, no clubbing or edema.? Neurovascularly intact. Appears to have normal strength in all extremities. NEUROLOGICAL: Alert and oriented x4.Normal gait and speech. SKIN: Warm, dry, no laceration, no petechiae, no rashes or lesions. Objective Labs Result Diagrams: 07/17/22 07:01 07/17/22 07:01 Labs: Laboratory Results - last 24 hr 07/16/22 07/16/22 07/16/22 09:00 09:00 09:00 WBC 22.0 H RBC 5.05 Hgb 15.0 Hct 44.8 MCV 88.7 MCH 29.7 MCHC 33.5 RDW 13.0 Plt Count 182 Neut % (Auto) 88.0 H Lymph % (Auto) 5.5 L [place] % (Auto) 6.0 Eos % (Auto) 0.1 L Baso % (Auto) 0.4 Neut # (Auto) 84272 H Lymph # (Auto) 1200 [place] # (Auto) 1300 H Eos # (Auto) 0 Baso # (Auto) 100 Sodium 137 Potassium 3.8 Chloride 101 Carbon Dioxide 25 BUN 21 H Creatinine 0.80 Estimated GFR > 60 BUN/Creatinine Ratio 26.3 H Glucose 109 Lactate Calcium 9.7 Total Bilirubin 1.1 AST 24 ALT 19 Alkaline Phosphatase 88 Total Creatine Kinase 117 CK-MB (CK-2) 0.61 CK-MB (CK-2) Rel Index 0.5 L Troponin I < 0.012 NT-Pro-B Natriuret Pep 261 H Total Protein 8.1 Albumin 4.4 Globulin 3.7 Albumin/Globulin Ratio 1.2 Procalcitonin 0.97 H Urine Color Urine Appearance Urine pH Ur Specific [place] Urine Protein Urine Glucose (UA) Urine Ketones Urine Occult Blood Urine Nitrate Urine Bilirubin Urine Urobilinogen Ur Leukocyte Esterase Urine RBC Urine WBC Urine Bacteria Ur Culture Indicated? SARS-CoV-2 (PCR) Influenza A (RT-PCR) Influenza B (RT-PCR) RSV (PCR) 07/16/22 07/16/22 07/16/22 09:00 09:00 11:15 WBC RBC Hgb Hct MCV MCH MCHC RDW Plt Count Neut % (Auto) Lymph % (Auto) [place] % (Auto) Eos % (Auto) Baso % (Auto) Neut # (Auto) Lymph # (Auto) [place] # (Auto) Eos # (Auto) Baso # (Auto) Sodium Potassium Chloride Carbon Dioxide BUN Creatinine Estimated GFR BUN/Creatinine Ratio Glucose Lactate 1.5 Calcium Total Bilirubin AST ALT Alkaline Phosphatase Total Creatine Kinase CK-MB (CK-2) CK-MB (CK-2) Rel Index Troponin I NT-Pro-B Natriuret Pep Total Protein Albumin Globulin Albumin/Globulin Ratio Procalcitonin Urine Color Yellow Urine Appearance Clear Urine pH 5.0 Ur Specific [place] 1.020 Urine Protein Trace H Urine Glucose (UA) Negative Urine Ketones 1+ H Urine Occult Blood 3+ H Urine Nitrate Negative Urine Bilirubin Negative Urine Urobilinogen 0.2 Ur Leukocyte Esterase Negative Urine RBC 5-10/hpf H Urine WBC None seen Urine Bacteria None seen Ur Culture Indicated? Cult not indicated SARS-CoV-2 (PCR) Negative Influenza A (RT-PCR) Flu a negative Influenza B (RT-PCR) Flu b negative RSV (PCR) Negative 07/17/22 07/17/22 07/17/22 07:01 07:01 07:01 WBC 20.8 H RBC 4.35 L Hgb 12.8 L Hct 38.8 L MCV 89.2 MCH 29.4 MCHC 33.0 RDW 13.0 Plt Count 192 Neut % (Auto) 86.5 H Lymph % (Auto) 6.0 L [place] % (Auto) 7.3 Eos % (Auto) 0.1 L Baso % (Auto) 0.1 Neut # (Auto) 23630 H Lymph # (Auto) 1200 [place] # (Auto) 1500 H Eos # (Auto) 0 Baso # (Auto) 0 Sodium 137 Potassium 3.8 Chloride 102 Carbon Dioxide 23 BUN 21 H Creatinine 0.70 Estimated GFR > 60 BUN/Creatinine Ratio 30.0 H Glucose 145 H Lactate Calcium 8.8 Total Bilirubin 0.4 AST 18 ALT 15 Alkaline Phosphatase 71 Total Creatine Kinase CK-MB (CK-2) CK-MB (CK-2) Rel Index Troponin I NT-Pro-B Natriuret Pep Total Protein 7.1 Albumin 3.6 Globulin 3.5 Albumin/Globulin Ratio 1.0 Procalcitonin 0.86 H Urine Color Urine Appearance Urine pH Ur Specific [place] Urine Protein Urine Glucose (UA) Urine Ketones Urine Occult Blood Urine Nitrate Urine Bilirubin Urine Urobilinogen Ur Leukocyte Esterase Urine RBC Urine WBC Urine Bacteria Ur Culture Indicated? SARS-CoV-2 (PCR) Influenza A (RT-PCR) Influenza B (RT-PCR) RSV (PCR) [facility] Social History household members: spouse Smoking Status: Current some day smoker alcohol intake: current Assessment & Plan Assessment & Plan narrative: 1. Right lower lung bronchiectasis and pneumonia. Continue ceftriaxone and azithromycin that was initiated in the ER. Follow clinically and follow labs. 2. Underlying COPD. Likely with exacerbation. Continue patient's regular inhalers and also provide prednisone. 3. History of smoking. Currently only smokes 1 cigarette per month. Smoking cessation discussion with the patient. 4. Concern for sepsis. Blood cultures no growth to date. 5. Respiratory failure with hypoxia and an O2 saturation measured at 86% on room air secondary to the COPD/pneumonia. Provide O2 supplementation as needed titrated to 88-92% and continue to treat COPD exacerbation/pneumonia. 6. Lung nodule vs mass vs nodular infiltrate. CTA demonstrating spiculated 1.2 x 1.3 cm masslike consolidation in left lung base which may represent focal nodular infiltrate/atelectasis.? Malignant mass cannot be excluded.? Follow-up CT study in 3 months is recommended for further evaluation. 7. Emphysema noted and changes consistent with asbestos exposure rated on CTA of the chest. 8. Elevated BUN to 21. Consistent with mild dehydration. Encourage fluid intake. 9. Elevated BNP to 261. No specific treatment needed at this time. Likely secondary to pneumonia causing some congestion. 10. Elevated procalcitonin. Now downtrending. 11. Microscopic hematuria. Follow. DVT prophylaxis: Enoxaparin subcu every day 40 mg Code status: Full code Substitute decision maker: Patient's and Liveda Loose Dispo: Home in 1-2 days. Time Spent With Patient Critical Care time: I spent a total of [] minutes of critical care time on this patient's care today; this time is exclusive of procedural time. Quality VTE Deep Vein Thrombosis/Pulmonary Embolism Present on Admission: No
[2022-07-17 08:08] LABS: C-Reactive Protein Quant 16.1 mg/dL (<1.0)
[2022-07-17] MEDS: predniSONE 20 MG TABLET 40 MG PO (08:42)
[2022-07-17] MEDS: SENNOSIDES 8.6 MG TABLET 17.2 MG PO (08:42)
[2022-07-17] MEDS: cefTRIAXone 1,000 MG in SODIUM CHLORIDE 0.9% 100 ML 200 MG IV (08:42)
[2022-07-17 09:00] VITALS: O2SAT 93
--- NOTE | 2022-07-17 09:14 | CM.DANOTE ---
DCP: Case received EMR reviewed, this pie filler introduced self to patient and was able to obtain information regarding pt's baseline activity level prior to hospitalization, as well as current living situation. DCP's assessment completed with information currently available. Pt came in via pov PCP: Dr. Mike, prior/ Dr. Jonathan Wagner, [facility] [place], Payor: Medicare Pt came to hospital secondary to SOB, hypoxia, SPO2 86% ra. Pt holds diagnosis of COPD, Pneumonia he was placed on 02 on admission. Met with pt in his room. He was sitting up in bed eating breakfast. Oxygen is no longer needed. He reports that he resides in [place] with his who is his primary contact. , Navarro Mtz. He states that he came to [place] to see Dr. Ventura for follow up, who had performed neck sx approx 2 months ago. He states he was staying with his son and was here one night and then became symptomatic. Pt is independent at baseline, a +ox4. P: Return independently to [place]. Flight changed by pt to Saturday AM. Francie Roy RN Case Manager/Rivka Velazco RN/Access Services Representative Discharge Planning/Care Management CM Discharge Assessment Start: 07/17/22 09:08 Freq: Status: Active Protocol: Document 07/17/22 09:09 JAE (Rec: 07/17/22 09:12 JAE [id number]) Discharge Planning Assessment Assigned Street And Building Decorator Francie Roy RN Case Manager Advance Directives? No History Provided By Patient Prior Living Arrangements House Household Members spouse Type of transporation used prior to Drives own vehicle admit Independent with ADL's Yes Is patient alert and oriented? Yes Caregiver for Another No Barriers to Discharge No Discharge Plan Home Referrals Initiated None needed Whiteboard Updated in Patient Room with Yes name and ext. # of Street And Building Decorator Review Status In Process Next Review Type Continued Stay Review
[2022-07-17] MEDS: AZITHROMYCIN 500 MG in DEXTROSE 5% IN WATER 250 ML 250 MG IV (10:48)
[2022-07-17] MEDS: ENOXAPARIN 40 MG/0.4 ML SYRINGE SUBCUT (10:53)
[2022-07-17 18:23] VITALS: PULSE 83; RESP 18; O2SAT 93
[2022-07-17] MEDS: ALBUTEROL 2.5 MG/3 ML NEB (ADULT) INH (18:35)
[2022-07-17 19:20] VITALS: BP 113/74; PULSE 75; RESP 19; TEMP 36.9; O2SAT 92
--- NOTE | 2022-07-18 04:14 | PC.NURSE ---
Pt is Axox3, calm and cooperative. VSS, pt c/o pain around his eye and recieved PRN Oxy 10mg PO at bedtime with good effect. BG-233 and pt recieved 2 units of Lispro as well as his 5 units of Glargine. Pt is still on heated high flow and lungs diminished in all area. Huertas is draining yellow color urine. Pt slept well overnight. Continue monitor.
--- NOTE | 2022-07-18 04:20 | PC.NURSE ---
Pt is AxOx4, independent and cooperative. VSS, pt denied pain. Pt is on RA and sats mid 90s but lungs on RLL posterior has crackles. Otherwise, no changes. Pt slept well. Continue monitor.
--- NOTE | 2022-07-18 07:11 | PM.PN.1 ---
Exam Vital Signs (past 8 hours): Fraction of Inspired Oxygen 24 SaO2/FiO2 Ratio 387 Oxygen Delivery Method Room Air Oxygen Flow Rate 0 Narrative Exam Narrative: GENERAL:? Alert and oriented and in no acute distress. HEENT: Head atraumatic,EOMI, pupils reactive, face symmetric, moist mucous membranes. Extraocular movements normal. CARDIOVASCULAR: Regular rate and rhythm without murmurs, rubs or gallops. Heart sounds S1 and S2 RESPIRATORY:? Slightly decreased breath sounds throughout but coarse at bases. No wheezes or crackles. ABDOMEN: Soft, nontender.? Normoactive bowel sounds all 4 quadrants.? No guarding or rebound. EXTREMITIES: Normal range of motion, no clubbing or edema.? Neurovascularly intact. Appears to have normal strength in all extremities. NEUROLOGICAL: Alert and oriented x4.Normal gait and speech. SKIN: Warm, dry, no laceration, no petechiae, no rashes or lesions. Objective Labs Result Diagrams: 07/17/22 07:01 07/17/22 07:01 Labs: Laboratory Results - last 24 hr 07/17/22 07/17/22 07/17/22 07:01 07:01 07:01 WBC 20.8 H RBC 4.35 L Hgb 12.8 L Hct 38.8 L MCV 89.2 MCH 29.4 MCHC 33.0 RDW 13.0 Plt Count 192 Neut % (Auto) 86.5 H Lymph % (Auto) 6.0 L [place] % (Auto) 7.3 Eos % (Auto) 0.1 L Baso % (Auto) 0.1 Neut # (Auto) 23535 H Lymph # (Auto) 1200 [place] # (Auto) 1500 H Eos # (Auto) 0 Baso # (Auto) 0 Sodium 137 Potassium 3.8 Chloride 102 Carbon Dioxide 23 BUN 21 H Creatinine 0.70 Estimated GFR > 60 BUN/Creatinine Ratio 30.0 H Glucose 145 H Calcium 8.8 Total Bilirubin 0.4 AST 18 ALT 15 Alkaline Phosphatase 71 C-Reactive Protein 16.1 H Total Protein 7.1 Albumin 3.6 Globulin 3.5 Albumin/Globulin Ratio 1.0 Procalcitonin 0.86 H PFSH Social History household members: spouse Smoking Status: Current some day smoker alcohol intake: current Assessment & Plan Assessment & Plan narrative: 1. Right lower lung bronchiectasis and pneumonia. Continue ceftriaxone and azithromycin that was initiated in the ER. Follow clinically and follow labs. 2. Underlying COPD. Likely with exacerbation. Continue patient's regular inhalers and also provide prednisone. 3. History of smoking. Currently only smokes 1 cigarette per month. Smoking cessation discussion with the patient. 4. Concern for sepsis. Blood cultures no growth to date. 5. Respiratory failure with hypoxia and an O2 saturation measured at 86% on room air secondary to the COPD/pneumonia. Provide O2 supplementation as needed titrated to 88-92% and continue to treat COPD exacerbation/pneumonia. 6. Lung nodule vs mass vs nodular infiltrate. CTA demonstrating spiculated 1.2 x 1.3 cm masslike consolidation in left lung base which may represent focal nodular infiltrate/atelectasis.? Malignant mass cannot be excluded.? Follow-up CT study in 3 months is recommended for further evaluation. 7. Emphysema noted and changes consistent with asbestos exposure rated on CTA of the chest. 8. Elevated BUN to 21. Consistent with mild dehydration. Encourage fluid intake. 9. Elevated BNP to 261. No specific treatment needed at this time. Likely secondary to pneumonia causing some congestion. 10. Elevated procalcitonin. Now downtrending. 11. Microscopic hematuria. Follow. DVT prophylaxis: Enoxaparin subcu every day 40 mg Code status: Full code Substitute decision maker: Patient's and Liveda Loose Dispo: Home in 1-2 days. Time Spent With Patient Critical Care time: I spent a total of [] minutes of critical care time on this patient's care today; this time is exclusive of procedural time. Quality VTE Deep Vein Thrombosis/Pulmonary Embolism Present on Admission: No
[2022-07-18 08:23] LABS: Add Manual Diff / Slide Review NO; Basophils Absolute Auto 100 /uL (0-100); Basophils Percent Auto 0.4 % (0-2); Eosinophils Absolute Auto 100 /uL (0-450); Eosinophils Percent Auto 0.5 % (2-4); Hematocrit 38.4 % (41-53); Hemoglobin 12.6 g/dL (13.5-17.5); Lymphocytes Absolute Auto 1700 /uL (1100-4500); Lymphocytes Percent Auto 10.2 % (25-40); Mean Corpuscular HGB Conc 32.9 % (30-36); Mean Corpuscular Hemoglobin 29.4 PG (26-34); Mean Corpuscular Volume 89.3 fL (80-100); Monocytes Absolute Auto 1200 /uL (0-900); Monocytes Percent Auto 7.6 % (3-14); Neutrophils Absolute Auto 13300 /uL (1500-7000); Neutrophils Percent Auto 81.3 % (50-75); Platelet Count 188 X10^3/uL (150-400); Red Cell Distribution Width 13.2 % (11.6-14.8); White Blood Cell Count 16.3 X10^3/uL (4.5-11.0)
[2022-07-18 08:45] LABS: BUN Creatinine Ratio 26.9 (6-22); Blood Urea Nitrogen 18 mg/dL (9-20); Calcium 8.7 mg/dL (8.4-10.2); Carbon Dioxide 23 mmol/L (22-32); Chloride 104 mmol/L (98-107); Estimated Glomerular Filt Rate > 60 mL/min (>60); Glucose 92 mg/dL (80-110); HEMOLYSIS < 15 (0-50); Potassium 3.5 mmol/L (3.4-5.1); Sodium 138 mmol/L (137-145)
[2022-07-18] MEDS: ALBUTEROL 2.5 MG/3 ML NEB (ADULT) INH (09:10)
[2022-07-18] MEDS: BUDESONIDE 0.5 MG/2 ML NEB INH (09:10)
[2022-07-18 09:13] VITALS: PULSE 79; RESP 20; O2SAT 92
[2022-07-18] MEDS: ENOXAPARIN 40 MG/0.4 ML SYRINGE SUBCUT (09:30)
[2022-07-18] MEDS: cefTRIAXone 1,000 MG in SODIUM CHLORIDE 0.9% 100 ML 200 MG IV (09:30)
[2022-07-18] MEDS: SENNOSIDES 8.6 MG TABLET 17.2 MG PO (09:31)
[2022-07-18] MEDS: predniSONE 20 MG TABLET 40 MG PO (09:31)
[2022-07-18 10:16] VITALS: BP 132/76; PULSE 92; RESP 16; TEMP 36.6; O2SAT 92
[2022-07-18] MEDS: AZITHROMYCIN 500 MG in DEXTROSE 5% IN WATER 250 ML 250 MG IV (10:48)
--- NOTE | 2022-07-18 11:05 | PM.DS.1 ---
History of Present Illness History of Present Illness Date Patient Seen: 07/18/22 Chief complaint: sent by [facility] Narrative: Ruben Mtz is a 67-year-old male history of COPD not on home oxygen presenting today with fever last night and increasing shortness of breath.? He states that his granddaughter she is had RSV and influenza about a week ago he also just flew in from [place].? Last evening he reports that he is very chilled and could not get warm.? He is had more productive cough.? He reports not getting as much relief from his inhalers as he used to.? He denies any chest pain or palpitations.? He denies any orthopnea.? He feels short of breath rest.? Denies any abdominal pain nausea vomiting.? He is noted to be hypoxic on room air at 86%. In the ER, COVID/influenza and RSV tests were all negative. X-ray was concerning for right-sided pneumonia and right-sided pleural effusion. CTA of chest confirmed no pulmonary embolism however there was nodular infiltrate and atelectasis or possible malignant mass left lower lung as well as right lower findings consistent with pneumonia and bronchiectasis. There is a recommendation for follow-up CT at 3 months. Not complaining of any nausea vomiting diaphoresis or abdominal pain. No dysuria or hematuria. Able to move all extremities volitionally. Neurological symptoms in any extremity. Discharge Providers Provider Date of admission: 07/16/22 10:45 Discharge Date: 07/18/22 Primary care physician: Jasmin Mike MD Discharge provider: Mathieu Carey DO Summary Hospital Course Discharge Diagnosis: 1. Right lower lung bronchiectasis and pneumonia. Continue ceftriaxone and azithromycin that was initiated in the ER. Discharged on po abx. 2. Underlying COPD. Likely with exacerbation. Continue patient's regular inhalers and also provided prednisone x5 days 3. History of smoking. Currently only smokes 1 cigarette per month. Smoking cessation discussion with the patient. 4. Concern for sepsis. Blood cultures no growth to date. 5. Respiratory failure with hypoxia and an O2 saturation measured at 86% on room air secondary to the COPD/pneumonia. Provide O2 supplementation as needed titrated to 88-92% and continue to treat COPD exacerbation/pneumonia. Able to wean to room air. 6. Lung nodule vs mass vs nodular infiltrate. CTA demonstrating spiculated 1.2 x 1.3 cm masslike consolidation in left lung base which may represent focal nodular infiltrate/atelectasis.? Malignant mass cannot be excluded.? Follow-up CT study in 3 months is recommended for further evaluation. 7. Emphysema noted and changes consistent with asbestos exposure rated on CTA of the chest. 8. Elevated BUN to 21. Consistent with mild dehydration. Encourage fluid intake. 9. Elevated BNP to 261. No specific treatment needed at this time. Likely secondary to pneumonia causing some congestion. 10. Elevated procalcitonin. Now downtrending. 11. Microscopic hematuria. Follow. Hospital Course: Admitted for pneumonia and COPD exacerbation. Improved on steroids and antibiotics and was able to wean off oxygen to room air. CT of chest noted a 1.2 x 1.3 cm masslike consolidation in the left lung base malignancy can not be excluded so repeat CT chest recommended in 3 months. Provided printout take back to [facility] and have his PCP compare support with a repeat CT in 3 months. He was discharged on 3 more days of oral cefdinir, azithromycin for 1 day and 3 days of prednisone. Time Spent with Patient Time spent: Greater than 30 minutes Exam Vital Signs (past 8 hours): - 07/18/22 09:13 07/18/22 10:16 Temperature 97.9 F Pulse Rate 79 92 H Respiratory Rate 20 16 Blood Pressure 132/76 Pulse Oximetry 92 92 Fraction of Inspired Oxygen 24 SaO2/FiO2 Ratio 387 Oxygen Delivery Method Room Air Oxygen Flow Rate 0 Narrative Exam Narrative: GENERAL:? Alert and oriented and in no acute distress. HEENT: Head atraumatic,EOMI, pupils reactive, face symmetric, moist mucous membranes. Extraocular movements normal. CARDIOVASCULAR: Regular rate and rhythm without murmurs, rubs or gallops. Heart sounds S1 and S2 RESPIRATORY:? Slightly decreased breath sounds throughout but coarse at bases. No wheezes or crackles. ABDOMEN: Soft, nontender.? Normoactive bowel sounds all 4 quadrants.? No guarding or rebound. EXTREMITIES: Normal range of motion, no clubbing or edema.? Neurovascularly intact. Appears to have normal strength in all extremities. NEUROLOGICAL: Alert and oriented x4.Normal gait and speech. SKIN: Warm, dry, no laceration, no petechiae, no rashes or lesions. Objective Labs Result Diagrams: 07/18/22 08:12 07/18/22 08:12 Labs: Laboratory Results - last 24 hr 07/18/22 07/18/22 08:12 08:12 WBC 16.3 H RBC 4.30 L Hgb 12.6 L Hct 38.4 L MCV 89.3 MCH 29.4 MCHC 32.9 RDW 13.2 Plt Count 188 Neut % (Auto) 81.3 H Lymph % (Auto) 10.2 L [place] % (Auto) 7.6 Eos % (Auto) 0.5 L Baso % (Auto) 0.4 Neut # (Auto) 27227 H Lymph # (Auto) 1700 [place] # (Auto) 1200 H Eos # (Auto) 100 Baso # (Auto) 100 Sodium 138 Potassium 3.5 Chloride 104 Carbon Dioxide 23 BUN 18 Creatinine 0.67 Estimated GFR > 60 BUN/Creatinine Ratio 26.9 H Glucose 92 Calcium 8.7 PFSH Social History household members: spouse Smoking Status: Current some day smoker alcohol intake: current Discharge Plan Discharge Plan Patient Disposition: Home Provider Discharge Comment: You were admitted for a COPD exacerbation and pneumonia. You improved on steroids and antibiotics and were able to come off of oxygen. Please complete a few more days of oral steroids and antibiotics which I've sent to your pharmacy. Your CT scan showed a possible lung mass/nodule at 1x1cm which you will need a repeat chest CT of in 3 months. Discharge orders & Medications Prescriptions: New prednisone 20 mg Tablet 40 mg PO DAILY 3 Days Qty: 6 0RF Rx Instructions: start on 07/19 azithromycin 500 mg tablet 500 mg PO DAILY 1 Days Qty: 1 0RF Rx Instructions: take on 07/19 cefdinir 300 mg capsule 300 mg PO BID 3 Days Qty: 6 0RF Rx Instructions: start on 07/19 Continued albuterol sulfate 90 mcg/actuation HFA aerosol inhaler 1 inh INHALATION BID PRN (Reason: Shortness Of Breath) budesonide-formoterol [Symbicort] 160-4.5 mcg/actuation HFA aerosol inhaler 1 inh INHALATION BID Spiriva with HandiHaler 18 mcg capsule, w/inhalation device 18 mcg INHALATION DAILY Follow up/Referrals: Jasmin Mike MD [Primary Care Provider] - Diet/Activity/Treatments Other treatments: Follow up for possible lung nodule/mass with your primary care provider in 3 months. Visit Report/Discharge Packet Instructions: DI for Chronic Obstructive Pulmonary Disease, DI for Pneumonia -- Adult, COPD: When to Call for Help Stand Alone Forms: Patient Portal/API, Stroke Signs & Symptoms Discharge Data Primary Care Provider: Jasmin Mike VTE Deep Vein Thrombosis/Pulmonary Embolism Present on Admission: No
--- NOTE | 2022-07-18 11:42 | RT ---
Ambulated patient down the chauhan this morning. His average Sp02 was 90%. His lowest was 88%. He went right back up to 93% at rest.
--- NOTE | 2022-07-18 13:23 | PC.NURSE ---
Discharge: Feels ready to d/c to home, RT did home O2 eval, passed. MD Carey here and gave d/c instructions. Discharge packet given, Questions answered. RX has been esent and pt aware. Pt d/c home via own private auto.
== END 2022-07-18 13:00 | disposition home or self-care (01) | DRG 193 ==
LOC: ED 10:36 → AC 10:46
PROVIDERS: Student in an Organized Health Care Education/Training Program; Admitting Provider Neuromusculoskeletal Medicine, Sports Medicine; Emergency Provider Emergency Medicine; Family Provider Family Medicine; PCP Family Medicine; Referring Provider Emergency Medicine; Visit Provider Neuromusculoskeletal Medicine, Sports Medicine
DX: J18.9 Pneumonia, unspecified organism (principal); J96.91 Respiratory failure, unspecified with hypoxia; J47.0 Bronchiectasis with acute lower respiratory infection; F17.210 Nicotine dependence, cigarettes, uncomplicated; E86.0 Dehydration; Z20.822 Contact with and (suspected) exposure to COVID-19
CPT/HCPCS: 0241U; 36415; 71045; 71275; 80048; 80053; 81001; 81003; 82550; 82553; 83605; 83880; 84145; 84484; 85025; 86140; 87040; 87070; 87205; 93005; 93010; 94618; 94640; 94762; 96365; 96375; 99285; A9270; J0696; J1650; J2930; J7613; Q9967